=== PATIENT | male | born 2000 | race Caucasian/White ===

== ENCOUNTER 2024-06-13 10:32 | Emergency (ER) | payer OTHER ==
[~2024-06-13 10:32] MED LIST: AUGMENTIN 500 M1 TAB PO; CLARITIN10 MG PO; MOTRIN 600 MG E4 TAB PO; MOTRIN400 MG PO; NAPROSYN500 MG PO; NKHM; ZITHROMAX Z PA250 MG PO
== END 2024-06-13 10:55 | disposition left against medical advice (07) ==
LOC: ED 10:32
DX: M54.2 Cervicalgia (principal); Z53.21 Procedure and treatment not carried out due to patient leaving prior to being seen by health care provider